=== PATIENT | female | born 1975 | race African-American/Black ===

== ENCOUNTER 2018-10-13 04:25 | Emergency (ER) | payer SELFPAY ==
[~2018-10-13] VITALS: Ht 165.1 cm; Wt 63.5 kg
[2018-10-13 05:04] VITALS: BP 146/80
[2018-10-13] MEDS ORDERED: ACETAMINOPHEN 325MG TABLET PO ONE (05:30)
[2018-10-13] MEDS ORDERED: LIDOCAINE HCL 4% CREAM 76GM TUBE TP STA (06:18)
[2018-10-13] MEDS ORDERED: LIDOCAINE 1%/EPI 1:100,000 10 ML VIAL IJ ONE (06:30)
[2018-10-13] MEDS ORDERED: LIDOCAINE 2% JELLY APPLIC 5 ML MM SCH (06:45)
== END 2018-10-13 09:22 | disposition home or self-care (01) ==
LOC: ER 04:25
DX: S01.81XA Laceration without foreign body of other part of head, initial encounter (principal); V43.62XA Car passenger injured in collision with other type car in traffic accident, initial encounter; Y93.89 Activity, other specified; Y92.488 Other paved roadways as the place of occurrence of the external cause
CPT/HCPCS: 12013; 70450; 99284; J3490; Z7610